=== PATIENT | female | born 1985 | race Caucasian/White ===

== ENCOUNTER 2019-04-02 07:59 | Emergency (ER) | payer OTHER, MEDICAID ==
[~2019-04-02] VITALS: Ht 165.1 cm; Wt 72.6 kg
--- NOTE | 2019-04-02 08:32 | Diagnostic Imaging Report ---
PATIENT HISTORY: Left ankle injury. TECHNIQUE: 3 views of the left ankle COMPARISON: None FINDINGS: There is a mildly displaced avulsion fracture at the tip of the lateral malleolus. Ankle mortise appears symmetric. Joint spaces are preserved. An os trigonum is noted. There is a small plantar calcaneal enthesophyte. There is a small tibiotalar joint effusion. There is moderate lateral soft tissue edema. IMPRESSION: 1. Mildly displaced avulsion fracture at the tip of the left lateral malleolus. 2. Small left tibiotalar joint effusion. Dictated by: Dictated on workstation # [id number]
--- NOTE | 2019-04-02 08:51 | ED Lower Extremity ---
General Chief Complaint: Lower Extremity Stated Complaint: LT FOOT INJ Nursing Triage Note: Patient reports she was watering gamino last night, tripped and fell in the yard and heard her left ankle "pop". Swelling and pain in left ankle have worsened overnight. Patient states she is 30 weeks . Nursing Sepsis Screen: No Definite Risk Source: patient, RN notes reviewed Exam Limitations: no limitations History of Present Illness Date Seen by Provider: Apr 02, 2019 Time Seen by Provider: 08:45 Initial Comments Patient presents c/ c/o worsening left ankle pain and swelling p/ falling last PM. States she did hear a pop in her ankle when it happened. Denies any other injuries. Reports being 30 weeks . Onset: yesterday (last PM) Severity: moderate (03/29) Pain/Injury Location: left ankle Method of Injury: fell (while watering plants) Modifying Factors: Worse With Movement; Improves With Rest Allergies and Home Medications Allergies Coded Allergies: peanut (Verified Allergy, Unknown, 04/02/19) Patient Home Medication List Home Medication List Reviewed: Yes Review of Systems Constitutional: see HPI : Yes Musculoskeletal: see HPI, other (left ankle pain and swelling) All Other Systems Reviewed Negative Unless Noted: Yes (Negative excepted noted.) Past Dnqvkhw-Cmxlgt-Tthakt Hx Patient Social History Alcohol Use: Denies Use Recreational Drug Use: No Smoking Status: Never a Smoker 2nd Hand Smoke Exposure: No Recent Foreign Travel: No Contact w/Someone Who Travel: No Recent Infectious Disease Expo: No Recent Hopitalizations: No Physical Abuse: No Sexual Abuse: No Mistreated: No Fear: No Seasonal Allergies Seasonal Allergies: No Past Medical History Surgeries: Yes (rotator cuff) Orthopedic Respiratory: No Cardiac: No Neurological: No Genitourinary: No Gastrointestinal: No Musculoskeletal: No Endocrine: No HEENT: No Cancer: No Psychosocial: No Integumentary: No Blood Disorders: No Adverse Reaction/Blood Tranf: No Physical Exam Vital Signs Vital Signs - First Documented 04/02/19 08:12 Temp 98.7 Pulse 125 Resp 16 B/P (MAP) 131/45 (73) Pulse Ox 100 O2 Delivery Room Air Capillary Refill : Less Than 3 Seconds Height, Weight, BMI Height: 5'5.00" Weight: 160lbs. oz. 72.901170uc; BMI Method:Stated General Appearance: WD/WN, no apparent distress Cardiovascular: tachycardia Respiratory: no respiratory distress Ankles: left ankle bone tenderness, left ankle limited range of motion, left ankle pain, left ankle swelling Neurologic/Psychiatric: no motor/sensory deficits, alert, normal mood/affect, oriented x 3 Skin: warm/dry Progress/Results/Core Measures Results/Orders My Orders Orders - ADITYA CEVALLOS DO Ankle 3 View Left (04/02/19 08:08) Surendra Bandage (04/02/19 08:51) Vital Signs/I&O 04/02/19 04/02/19 08:12 08:58 Temp 98.7 98.7 Pulse 125 125 Resp 16 16 B/P (MAP) 131/45 (73) 131/45 (73) Pulse Ox 100 100 O2 Delivery Room Air Blood Pressure Mean: 73 Diagnostic Imaging Diagonstic Imaging: Xray Plain Films/CT/US/NM/MRI: ankle (left; avulsion fx distal fibula) Departure Impression Primary Impression: Closed avulsion fracture of distal end of left fibula Disposition: HOME, SELF-CARE Condition: Stable Departure-Patient Inst. Referrals: RHONDA SANCHEZ MD (PCP/Family) Primary Care Physician Patient Instructions: Fibula Fracture (DC) Add. Discharge Instructions: All discharge instructions reviewed with patient and/or family. Voiced understanding. WITH YOU BEING YOU CAN ONLY USE TYLENOL 1000 mg EVERY 6 HOURS FOR PAIN. DO NOT EXCEED 4000 mg OF TYLENOL IN A 24 HOUR PERIOD. CHECK WITH DR. SANCHEZ IN THE AM (04/03) REGARDING POSSIBLE REFERRAL TO [facility] FOR FOLLOW UP EVALUATION AND RECOMMENDATIONS. ADITYA CEVALLOS DO Apr 02, 2019 08:51
[2019-04-02 08:58] VITALS: BP 131/45
== END 2019-04-02 08:59 | disposition home or self-care (01) ==
LOC: ER FS 08:01
DX: O9A.213 Injury, poisoning and certain other consequences of external causes complicating pregnancy, third trimester (principal); S82.832A Other fracture of upper and lower end of left fibula, initial encounter for closed fracture; Z3A.30 30 weeks gestation of pregnancy; W01.0XXA Fall on same level from slipping, tripping and stumbling without subsequent striking against object, initial encounter; Y92.096 Garden or yard of other non-institutional residence as the place of occurrence of the external cause
CPT/HCPCS: 73610

== ENCOUNTER 2019-04-29 15:10 | Outpatient (CLI) | payer OTHER, MEDICAID ==
[~2019-04-29] VITALS: Ht 162.6 cm; Wt 73.6 kg
--- NOTE | 2019-04-29 15:18 | NUR ---
SAYRA SOTELO presented to unit via AMBULATORY from ED, accompanied by MOTHER, with c/o N/V/D,CRAMPING. SAYRA SOTELO weighed, gowned, voided, and to bed. EFHM and TOCO applied, VS taken. SAYRA SOTELO oriented to bed controls, call light, TV, heat, and A/C controls.
[2019-04-29 15:24] VITALS: BP 124/73
[2019-04-29] MEDS ORDERED: ONDA4TAB11 PO (15:30)
[2019-04-29] MEDS ORDERED: PANT40TA2 PO (15:31)
[2019-04-29] MEDS ORDERED: PREN-37 PO (15:31)
[2019-04-29] MEDS ORDERED: FLUT9.9S NS (15:32)
[2019-04-29] MEDS ORDERED: LACTATED RINGERS 1,000 ML IV ONE (15:42)
[2019-04-29] MEDS ORDERED: ONDANSETRON 4 MG/2 ML (SDV) Z0FRAN ONE (15:42)
--- NOTE | 2019-04-29 15:45 | NUR ---
DR. SANCHEZ CALLED AND NOTIFIED OF PT'S ARRIVAL, GESTATION, C/O, REVIEW OF STRIP, VS. NEW ORDERS RECEIVED.
[2019-04-29] MEDS ORDERED: ONDANSETRON 4 MG/2 ML (SDV) Z0FRAN IVP ONE (16:00)
[2019-04-29] MEDS: LACTATED RINGERS 1,000 ML IV SCH ×2 (16:00→17:35)
[2019-04-29 17:13] LABS: BILIRUBIN,URINE NEGATIVE (NEGATIVE); CLARITY,URINE CLEAR; COLOR,URINE YELLOW; GLUCOSE, URINE (UA) NEGATIVE (NEGATIVE); KETONES,URINE 3+ (NEGATIVE); LEUKOCYTE ESTERASE ,URINE 2+ (NEGATIVE); NITRITE,URINE NEGATIVE (NEGATIVE); PH,URINE 6 (5-9); PROTEIN,URINE NEGATIVE (NEGATIVE); UROBILINOGEN,URINE NORMAL (NORMAL)
[2019-04-29 17:20] LABS: BACTERIA,URINE NEGATIVE /HPF; RBC,URINE RARE /HPF
--- NOTE | 2019-04-29 17:28 | NUR ---
DR. SANCHEZ CALLED AND NOTIFIED OF UA RESULTS, PT STATES HX OF GALLSTONES AT 20-23 WK ULTRASOUND. NEW ORDERS RECEIVED. PT TO F/U WITH DR. SANCHEZ THIS WEEK.
--- NOTE | 2019-04-29 17:52 | NUR ---
AROLDO CALLED INTO [facility]- SPOKE WITH MARIA G, PHARMACIST.
[2019-04-29] MEDS ORDERED: NITR-65 PO (18:00)
--- NOTE | 2019-04-29 18:45 | NUR ---
DISCHARGE PAPERS PROVIDED AND REVIEWED WITH PT, PT VERBALIZES UNDERSTANDING AND DENIES ANY QUESTIONS. PAPER SIGNED.
--- NOTE | 2019-04-29 19:00 | NUR ---
PT DISCHARGED FROM [facility] TO [facility]IA AMBULATORY IN STABLE CONDITION.
--- NOTE | 2019-05-01 16:14 | Physician Query-Final Dx ---
SUSY CAPMO 05/01/19 1614: Clinic Account Progress/Dx Physician Query: Please give diagnosis Please be sure to include the weeks of gestation Date of Service Apr 29, 2019 at 15:10 ANGELICA SANCHEZ MD 05/10/191: Clinic Account Progress/Dx DIAGNOSIS: Diagnosis Abdominal pain 33 weeks gestation third trimester SUSY CAMPO May 01, 2019 16:14 ANGELICA SANCHEZ MD May 10, 2019 20:31
== END 2019-04-29 18:45 | disposition home or self-care (01) ==
LOC: WSo 15:10 → LDRP 15:11 → WSo 18:45
PROVIDERS: ATTEND Family Medicine
DX: O26.893 Other specified pregnancy related conditions, third trimester (principal); R10.9 Unspecified abdominal pain; Z3A.33 33 weeks gestation of pregnancy
CPT/HCPCS: 81000; 96361; 96374; 99213

== ENCOUNTER → 2019-05-01 | Outpatient (CLI) | payer OTHER, MEDICAID ==
[~2019-05-01] MED LIST: FLUT9.9S NS; NITR-65 PO; ONDA4TAB11 PO; PANT40TA2 PO; PREN-37 PO
[2019-05-01 09:36] LABS: HEMATOCRIT 37 % (35-52); MEAN CORPUSCULAR HEMOGLOBIN 29 PG (25-34); MEAN CORPUSCULAR HGB CONC 32 G/DL (32-36); MEAN CORPUSCULAR VOLUME 89 FL (80-99); WHITE BLOOD COUNT 9.9 10^3/uL (4.3-11.0)
[2019-05-01 09:37] LABS: BASOPHILS % (AUTO) 0 % (0-10); EOSINOPHILS % (AUTO) 0 % (0-10); LYMPHOCYTES # (AUTO) 1.3 X 10^3 (1.0-4.0); LYMPHOCYTES % (AUTO) 13 % (12-44); MEAN PLATELET VOLUME 12.1 FL (7.4-10.4); MONOCYTES # (AUTO) 0.5 X 10^3 (0.0-1.0); MONOCYTES % (AUTO) 5 % (0-12); NEUTROPHILS % (AUTO) 81 % (42-75); PLATELET COUNT 202 10^3/uL (130-400); RED CELL DISTRIBUTION WIDTH 13.9 % (10.0-14.5)
[2019-05-01 09:57] LABS: ALANINE AMINOTRANSFERASE 23 U/L (0-55); ALBUMIN 3.6 GM/DL (3.2-4.5); ALKALINE PHOSPHATASE 104 U/L (40-136); BILIRUBIN,TOTAL 0.6 MG/DL (0.1-1.0); BUN/CREATININE RATIO 13; CALCIUM 8.8 MG/DL (8.5-10.1); CARBON DIOXIDE 17 MMOL/L (21-32); CHLORIDE 101 MMOL/L (98-107); CREATININE SERUM 0.55 MG/DL (0.60-1.30); GFR ESTIMATED > 60; GLUCOSE 85 MG/DL (70-105); SODIUM 138 MMOL/L (135-145); TOTAL PROTEIN 6.6 GM/DL (6.4-8.2)
== END ==
LOC: LAB 09:22
PROVIDERS: ATTEND Family Medicine
DX: E86.0 Dehydration (principal); R10.11 Right upper quadrant pain
CPT/HCPCS: 36415; 80053; 85025

== ENCOUNTER 2019-05-05 14:16 | Outpatient (CLI) | payer OTHER, MEDICAID ==
[~2019-05-05] VITALS: Ht 162.6 cm; Wt 73.6 kg
[2019-05-05] VITALS (8 sets, daily range): BP systolic 101–112; BP diastolic 56–67
--- NOTE | 2019-05-05 14:05 | NUR ---
Arrived to unit ambulates self and sent from office for IV fluids and medications due to lab results noted in office. pt c/o N/V/D for 1 week. Wt obtained and to room 303. Gowned and to bed. Oriented to room and call light.
[~2019-05-05 14:16] MED LIST changes: -SUCR1TAB36 PO
--- NOTE | 2019-05-05 15:05 | NUR ---
Dr Lopez notified of pt arrival, new orders received. Plan of care reviewed with pt. pt denies needs at this time. denies needing ice chips or water due to hx of n/v.
[2019-05-05] MEDS ORDERED: NS W/KCL 40 MEQ/L 1,000 ML IV ONE (15:15)
[2019-05-05] MEDS ORDERED: CATHETER FLUSH 10 ML SYR IV PRN (15:30)
[2019-05-05] MEDS: MAGNESIUM 1 GM/100 ML IVPB 100 ML IV SCH ×4 (16:15→19:58)
[2019-05-05] MEDS ORDERED: SUCR1TAB36 PO (16:26)
--- NOTE | 2019-05-05 18:00 | NUR ---
pt reports she is hungry and requests diet. Discussed diet and ordering process with pt. and reg diet ordered.
--- NOTE | 2019-05-05 22:10 | NUR ---
Written discharge instructions reviewed with patient. Discharge instructions signed and copy given. Patient ambulated off unit with all personal belongings. Condition stable. No signs or symptoms of distress.
--- NOTE | 2019-05-08 09:36 | Physician Query-Final Dx ---
SUSY CAMPO 05/08/19 0936: Clinic Account Progress/Dx Physician Query: Please give diagnosis Please remember to add gestational weeks Date of Service May 05, 2019 at 14:16 RHONDA SANCHEZ MD 05/12/19 2336: Clinic Account Progress/Dx DIAGNOSIS: Diagnosis: (1) Hypomagnesemia (2) Hypokalemia (3) Nausea vomiting and diarrhea (4) 34 weeks gestation of Diagnosis Hypomag and hypokalemia at 34 weeks gestation due to vomiting and diarrhea SUSY CAMPO May 08, 2019 09:36 RHONDA SANCHEZ MD May 12, 2019 23:36
== END 2019-05-05 22:10 | disposition home or self-care (01) ==
LOC: WSo 14:16 → LDRP 14:22 → WSo 22:10
PROVIDERS: ATTEND Family Medicine
DX: O99.283 Endocrine, nutritional and metabolic diseases complicating pregnancy, third trimester (principal); O21.2 Late vomiting of pregnancy; R19.7 Diarrhea, unspecified; E83.42 Hypomagnesemia; E87.6 Hypokalemia; Z3A.34 34 weeks gestation of pregnancy
CPT/HCPCS: 96361; 96374; 96376; 99213

== ENCOUNTER → 2019-05-05 | Outpatient (CLI) | payer OTHER, MEDICAID ==
[~2019-05-05] MED LIST changes: +SUCR1TAB36 PO
[2019-05-05 12:39] LABS: BUN/CREATININE RATIO 8; CARBON DIOXIDE 19 MMOL/L (21-32); CHLORIDE 103 MMOL/L (98-107); CREATININE SERUM 0.62 MG/DL (0.60-1.30); GFR ESTIMATED > 60; SODIUM 139 MMOL/L (135-145)
[2019-05-05 12:40] LABS: CALCIUM 8.7 MG/DL (8.5-10.1); GLUCOSE 92 MG/DL (70-105); MAGNESIUM 1.2 MG/DL (1.6-2.4)
== END ==
LOC: LAB FS 11:28
PROVIDERS: ATTEND Family Medicine
DX: E87.6 Hypokalemia (principal)
CPT/HCPCS: 36415; 80048; 83735

== ENCOUNTER 2019-06-08 19:00 | Inpatient (IN) | payer OTHER, MEDICAID ==
[~2019-06-08] VITALS: Ht 165 cm; Wt 78.7 kg
[~2019-06-08 19:00] MED LIST changes: +SUCR1TAB36 PO
--- NOTE | 2019-06-08 19:00 | NUR ---
SAYRA SOTELO presented to unit via ambulation from home, accompanied by s.o. for INDUCTION. SAYRA SOTELO weighed, gowned, voided, and to bed. EFHM and TOCO applied, VS taken. SAYRA SOTELO oriented to bed controls, call light, TV, heat, and A/C controls.
[2019-06-08] MEDS ORDERED: D5 LR IV SOLUTION 1,000 ML IV ONE (19:06)
[2019-06-08 19:27] VITALS: BP 123/71
[2019-06-08] MEDS: D5 LR IV SOLUTION 1,000 ML IV SCH (19:30)
[2019-06-08] MEDS ORDERED: LACTATED RINGERS 1,000 ML IV SCH (19:52)
[2019-06-08] MEDS ORDERED: MISOPROSTOL 100 MCG (CYTOTEC) TAB ONE (19:52)
[2019-06-08] MEDS ORDERED: TERBUTALINE INJ 1 MG/ML (BRETHINE) AMP SC PRN (20:00)
[2019-06-08] MEDS ORDERED: CATHETER FLUSH 10 ML SYR IV PRN (20:00)
[2019-06-08] MEDS ORDERED: MINERAL OIL CONCENTRATE 99.9% 15 ML UDC TOP PRN (20:00)
[2019-06-08 20:01] LABS: BASOPHILS % (AUTO) 0 % (0-10); EOSINOPHILS # (AUTO) 0.2 10^3/uL (0.0-0.3); EOSINOPHILS % (AUTO) 1 % (0-10); HEMATOCRIT 37 % (35-52); LYMPHOCYTES # (AUTO) 2.6 X 10^3 (1.0-4.0); LYMPHOCYTES % (AUTO) 21 % (12-44); MEAN CORPUSCULAR HEMOGLOBIN 28 PG (25-34); MEAN CORPUSCULAR HGB CONC 32 G/DL (32-36); MEAN CORPUSCULAR VOLUME 86 FL (80-99); MEAN PLATELET VOLUME 11.5 FL (7.4-10.4); MONOCYTES # (AUTO) 0.7 X 10^3 (0.0-1.0); MONOCYTES % (AUTO) 5 % (0-12); NEUTROPHILS # (AUTO) 9.4 X 10^3 (1.8-7.8); NEUTROPHILS % (AUTO) 73 % (42-75); PLATELET COUNT 232 10^3/uL (130-400); RED CELL DISTRIBUTION WIDTH 14.9 % (10.0-14.5); WHITE BLOOD COUNT 12.9 10^3/uL (4.3-11.0)
[2019-06-08] MEDS: MISOPROSTOL 100 MCG (CYTOTEC) TAB PV SCH ×2 (20:07→23:57)
[2019-06-08 21:30] VITALS: BP 109/53
[2019-06-08 22:30] VITALS: BP 115/68
[2019-06-08 23:30] VITALS: BP 121/61
[2019-06-09] VITALS (64 sets, daily range): BP systolic 101–146; BP diastolic 52–107
[2019-06-09] MEDS: BUTORPHANOL INJ 2 MG/ML (STADOL) VIAL IV PRN ×2 (01:36→03:33)
[2019-06-09] MEDS ORDERED: SUFENTA 0.6MCG/ML BUPIVA 0.125 100 ML ONE (03:39)
[2019-06-09] MEDS: D5 LR IV SOLUTION 1,000 ML IV SCH ×2 (03:45→11:22)
[2019-06-09] MEDS ORDERED: OXYTOCIN/NORMAL SALINE 500 ML IV SCH (04:11)
[2019-06-09] MEDS ORDERED: fentaNYL INJECTION 100 MCG/2 ML AMP ONE (04:12)
[2019-06-09] MEDS ORDERED: LACTATED RINGERS 1,000 ML IV ONE (04:55)
[2019-06-09] MEDS ORDERED: ONDANSETRON 4 MG/2 ML (SDV) Z0FRAN IV PRN (05:00)
[2019-06-09] MEDS ORDERED: NALOXONE 0.4 MG/ML 1 ML (NARCAN) VIAL IV PRN ×2 (05:00)
[2019-06-09] MEDS: EPIDURAL (SUFENTA 0.6MCG/ML BUPIVA 0.125%) 100 ML BAG EPI PRN ×2 (05:00→13:28)
[2019-06-09] MEDS ORDERED: diphenhydrAMINE 50 MG/ML INJ (BENADRYL) IV PRN (05:00)
[2019-06-09] MEDS ORDERED: METOCLOPRAMIDE INJ 10 MG/2 ML (REGLAN) IV PRN (05:00)
[2019-06-09] MEDS: MISOPROSTOL 100 MCG (CYTOTEC) TAB PV SCH (05:47)
[2019-06-09] MEDS ORDERED: PANTOPRAZOLE 40 MG (PROTONIX) VIAL IV ONE (09:00)
--- NOTE | 2019-06-09 10:46 | History & Physical-OB ---
OB - Chief Complaint & HPI Date/Time Date of Admission: Date of Admission: Jun 08, 2019 at 19:00 Date seen by a Provider: Jun 09, 2019 Time Seen by a Provider: 10:43 Chief Complaint/History OB-Reason for Admission/Chief: Induction of Labor Hx : 1 Hx Para: 0 Expected Date of Delivery: Jun 12, 2019 Gestational Age in Weeks: 39 Gestational Age in Days: 4 Indication for induction: maternal discomfort Admission Nurse Assessment Rev: Yes Allergies and Home Medications Allergies Coded Allergies: peanut (Verified Allergy, Unknown, 04/02/19) Home Medications Fluticasone Propionate 9.9 Ml Rodney.susp, 1 SPRAY NS DAILY, (Reported) 1 SPRAY EACH NARE DAILY Ondansetron 4 Mg Tab.rapdis, 4 MG PO DAILY, (Reported) Pantoprazole Sodium 40 Mg Tablet.dr, 40 MG PO DAILY, (Reported) Vit/Iron Fumarate/FA 1 Each Tablet, 1 EACH PO DAILY, (Reported) Patient Home Medication List Home Medication List Reviewed: Yes OB - History Hx of Present Care: Yes Ultrasounds: Normal mid trimester US Obstetrical Complications: None Medical Complications: None Delivery History Adverse Rxn to Tranfusion: No Patient Past Medical History previously healthy Social History/Family History Recent Infectious Disease Expo: No Alcohol Use: Denies Use Recreational Drug Use: No 2nd Hand Smoke Exposure: No Immunizations Hepatitis A: Yes Hepatitis B: Yes OB - Admission Exam Physical Exam Vitals: Vital Signs 06/09/19 06/09/19 06/09/19 07:20 07:50 10:20 Temp 36.5 Pulse 104 Resp 20 B/P (MAP) 115/66 (82) Pulse Ox 98 O2 Delivery Room Air HEENT: NCAT Heart: Rhythm Normal Lungs: Clear Abdomen: Gravid Extremities: Normal Reflexes: Normal Cervical Dilatation: 4cm Effacement: 75% Station: -2 Membranes: Ruptured Amniotic Fluid: Clear Heart Rate: 130's Accelerations: Accelerations Present Decelerations: No Decelerations Short Term Variability: Present Dinking Machine Operator Variability: Average (6-25) Contractions on Admission: < 5 Minutes Apart Labs Laboratory Tests Test 06/08/19 19:30 Range/Units White Blood Count 12.9 H 4.3-11.0 10^3/uL Red Blood Count 4.33 L 4.35-5.85 10^6/uL Hemoglobin 12.0 11.5-16.0 G/DL Hematocrit 37 35-52 % Mean Corpuscular Volume 86 80-99 FL Mean Corpuscular Hemoglobin 28 25-34 PG Mean Corpuscular Hemoglobin Concent 32 32-36 G/DL Red Cell Distribution Width 14.9 H 10.0-14.5 % Platelet Count 232 130-400 10^3/uL Mean Platelet Volume 11.5 H 7.4-10.4 FL Neutrophils (%) (Auto) 73 42-75 % Lymphocytes (%) (Auto) 21 12-44 % Monocytes (%) (Auto) 5 0-12 % Eosinophils (%) (Auto) 1 0-10 % Basophils (%) (Auto) 0 0-10 % Neutrophils # (Auto) 9.4 H 1.8-7.8 X 10^3 Lymphocytes # (Auto) 2.6 1.0-4.0 X 10^3 Monocytes # (Auto) 0.7 0.0-1.0 X 10^3 Eosinophils # (Auto) 0.2 0.0-0.3 10^3/uL Basophils # (Auto) 0.0 0.0-0.1 10^3/uL OB - Assessment/Plan/Diagnosis Assessment Admission Dx Induction of labor at 39 5/7 wga. Admission Status: Inpatient Order (span 2 midnights) Reason for Inpatient Admission: Induction of labor. Plan Plan: Induction Induction Method: per Pitocin Protocol Discharge Diagnosis Diagnosis: Unchanged from 2 hours prior. cytotec overnight. Increase pitocin. AROM earlier. Will monitor. RHONDA SANCHEZ MD Jun 09, 2019 10:46
[2019-06-09] MEDS ORDERED: LIDOCAINE/EPI 2% 1:200,00 (XYLOCAINE) 10 ML VIAL ONE (17:09)
[2019-06-09] MEDS ORDERED: MEASLES,MUMPS,RUBELLA 1 EA INJ SQ ONE (18:15)
[2019-06-09] MEDS ORDERED: BENZOCAINE/MENTHOL (DERMOPLAST) 56 ML CAN TP PRN (18:15)
[2019-06-09] MEDS ORDERED: WITCH HAZEL(TUCKS) 40 EA JAR TOP PRN (18:15)
--- NOTE | 2019-06-09 18:15 | OB Labor & Delivery Record ---
Vag Delivery Note Vag Delivery Note Date of Delivery: 06/09/19 Preoperative Diagnosis: Hilda Interiano is a (33 /Para 1 / 0, Gestational Age (wks)39with [5 days] Postoperative Diagnosis: Same Surgeon: RHONDA SANCHEZ [employer] Estimator: [none] Anesthesia: [epidural] Delivery Type: [] Findings: [] Viable [male] infant, apgars [8/9], weight [8 pounds 3 ounces] Lacerations: Intact placenta with 3 vessel cord. Loose nuchal cord times one. Estimated Blood Loss: [200] ml Complications: None Condition: Stable Description of Procedure: The patient is a 33 year old female who presented [for induction]. She was admitted and informed consent was obtained. Her labor course was remarkable for [nothing] She progressed to complete dilatation and began to push. She was then set up for delivery. The infant's head was delivered atraumatically in the [OA] position. The shoulders and remainder of the infant's body were then delivered without difficulty. Upon delivery, the head was held below the level of the perineum and the mouth and nares were bulb suctioned. The cord was doubly clamped and cut by father after 60 seconds. An intact placenta with 3- vessel cord delivered via Gia and there was found to be minimal bleeding.~ Vigorous fundal massage was performed and the fundus was found to be firm. IV oxytocin was given. Examination of the vagina and perineum revealed a [2nd degree perineal] laceration repaired in the usual fashion with 3-0 vicryl suture. Following the repair, sponge, instrument and needle counts were correct. Mom and baby were both in stable condition in the labor suite. Vitals - Labs Vital Signs - I&O Vital Signs Date Time Temp Pulse Resp B/P (MAP) Pulse Ox O2 Delivery O2 Flow Rate FiO2 06/09/19 16:05 84 118/70 (86) Room Air 06/09/19 15:50 79 122/68 (86) Room Air 06/09/19 15:35 37.0 69 125/70 (88) Room Air 06/09/19 15:20 87 124/73 (90) Room Air 06/09/19 15:05 74 122/60 (80) Room Air 06/09/19 14:20 37.0 76 18 105/52 (69) Room Air 06/09/19 14:05 97 126/69 (88) Room Air 06/09/19 13:50 86 119/60 (79) Room Air 06/09/19 13:35 84 112/66 (81) Room Air 06/09/19 13:20 36.9 81 20 110/67 (81) Room Air 06/09/19 13:05 80 111/63 (79) Room Air 06/09/19 12:50 76 106/57 (73) Room Air 06/09/19 12:35 90 121/64 (83) Room Air 06/09/19 12:20 37.4 104 18 111/91 (98) Room Air 06/09/19 12:05 77 110/58 (75) Room Air 06/09/19 11:50 76 109/65 (80) Room Air 06/09/19 11:35 89 108/70 (83) Room Air 06/09/19 11:20 85 110/60 (77) Room Air 06/09/19 11:05 71 104/53 (70) Room Air 06/09/19 10:50 83 106/54 (71) Room Air 06/09/19 10:35 37.1 83 18 131/80 (97) Room Air 06/09/19 10:20 104 115/66 (82) Room Air 06/09/19 10:05 89 121/72 (88) Room Air 06/09/19 09:50 86 114/60 (78) Room Air 06/09/19 09:35 91 123/69 (87) Room Air 06/09/19 09:20 94 138/68 (91) Room Air 06/09/19 09:05 88 133/74 (93) Room Air 06/09/19 08:50 86 120/74 (89) Room Air 06/09/19 08:35 73 107/61 (76) Room Air 06/09/19 08:20 114/75 (88) Room Air 06/09/19 08:05 71 128/72 (90) Room Air 06/09/19 07:50 68 112/66 (81) 98 Room Air 06/09/19 07:35 66 108/65 (79) 98 Room Air 06/09/19 07:20 36.5 74 20 115/69 (84) 98 Room Air 06/09/19 07:05 77 116/70 (85) 99 Room Air 06/09/19 07:00 64 113/55 (74) 98 Room Air 06/09/19 06:45 70 110/63 (79) 95 Room Air 06/09/19 06:30 70 101/63 (76) 97 Room Air 06/09/19 06:15 65 104/61 (75) 98 Room Air 06/09/19 06:00 79 110/59 (76) 95 Room Air 06/09/19 05:45 80 112/62 (79) 96 Room Air 06/09/19 05:30 70 96 Room Air 06/09/19 05:15 95 118/66 (83) 97 Room Air 06/09/19 05:10 73 118/65 (82) 97 06/09/19 05:05 82 117/68 (84) 100 06/09/19 05:00 96 115/58 (77) 98 Room Air 06/09/19 04:55 76 113/64 (80) 99 06/09/19 04:50 106 106/59 (75) 100 06/09/19 04:45 103 119/68 (85) 100 Room Air 06/09/19 04:40 96 136/82 (100) 100 06/09/19 04:35 69 114/57 (76) 100 06/09/19 04:31 99 122/56 (78) 100 06/09/19 04:30 35.8 93 117/59 (78) 100 Room Air 06/09/19 04:00 86 100 Room Air 06/09/19 02:30 104 115/68 (84) 06/09/19 01:30 78 121/79 (93) 06/09/19 01:00 36.6 06/09/19 00:30 79 111/63 (79) 06/08/19 23:30 96 121/61 (81) 06/08/19 22:30 91 115/68 (84) 06/08/19 21:30 88 109/53 (71) 06/08/19 19:27 37.0 112 18 123/71 (88) I & O 06/09/19 07:00 Intake Total 2000 ml Balance 2000 ml Labs Laboratory Tests 06/08/19 19:30: White Blood Count 12.9H, Red Blood Count 4.33L, Hemoglobin 12.0, Hematocrit 37, Mean Corpuscular Volume 86, Mean Corpuscular Hemoglobin 28, Mean Corpuscular Hemoglobin Concent 32, Red Cell Distribution Width 14.9H, Platelet Count 232, Mean Platelet Volume 11.5H, Neutrophils (%) (Auto) 73, Lymphocytes (%) (Auto) 21, Monocytes (%) (Auto) 5, Eosinophils (%) (Auto) 1, Basophils (%) (Auto) 0, Neutrophils # (Auto) 9.4H, Lymphocytes # (Auto) 2.6, Monocytes # (Auto) 0.7, Eosinophils # (Auto) 0.2, Basophils # (Auto) 0.0 RHONDA SANCHEZ MD Jun 09, 2019 18:15
[2019-06-09] MEDS: OXYTOCIN/NORMAL SALINE 500 ML IV SCH ×2 (18:18→19:49)
--- NOTE | 2019-06-09 19:25 | NUR ---
REPORT RECEIVED AND CARES RESUMED BY THIS NURSE.
--- NOTE | 2019-06-09 20:00 | NUR ---
DESPITE INSTRUCTIONS TO NOT GET OUT OF BED WITHOUT NURSE STANDBY, PT FOUND STANDING AT SIDE OF BED WITH BLOOD ON FLOOR AND EPIDURAL TUBING TANGLED. PT ASSISTED TO BATHROOM. EPIDURAL CATH D/C'D. PT CLEANED UP AND PERICARE DONE. TUCKS AND DERMAPLAST SPRAY USED. INSTRUCTED PT THAT HER ROOM WAS READY AND WE WOULD TRANSFER AT THIS TIME. PT DESIRES TO STAY IN LABOR ROOM TO EAT AND THEN MOVE.
[2019-06-09] MEDS: DOCUSATE SODIUM 100 MG (COLACE) CAP PO SCH (20:25)
--- NOTE | 2019-06-09 20:25 | NUR ---
PT AMB TO ROOM 310 IN STABLE CONDITION. AT SIDE WITH BELONGINGS.
--- NOTE | 2019-06-09 21:50 | NUR ---
PT SITTING UP IN BED WITH AT SIDE. PT AND WITH MANY QUESTIONS CONCERNING SELF-CARE, CARES AND ROUTINES. QUESTIONS ANSWERED.
[2019-06-09] MEDS ORDERED: CATHETER FLUSH 10 ML SYR IV SCH (22:00)
--- NOTE | 2019-06-09 22:00 | NUR ---
MAINTENANCE TO ROOM TO UNCLOG BATHROOM SINK.
--- NOTE | 2019-06-09 22:30 | NUR ---
PT INTO SHOWER. ASSIST.
[2019-06-10] MEDS: IBUPROFEN 600 MG (MOTRIN) TAB PO SCH ×5 (00:05→23:47)
--- NOTE | 2019-06-10 00:05 | NUR ---
PT REPORTS SHE IS HAVING VERY HEAVY BLEEDING. REPORTS LAST CHANGED PAD 1 HOUR AGO. PT TO BATHROOM WITH THIS NURSE AT SIDE. NOTED SCANT BLEEDING ON PAD APPROXIMATELY 3X1 INCH AREA OF RUBRA LOCHIA NOT SOAKED ENTIRELY THROUGH PAD. REASSURANCE GIVEN THAT THIS IS AN APPROPRIATE AMOUNT OF BLEEDING AND TO CALL FOR NURSE IF PASSING CLOTS, LOCHIA INCREASES OR IF SHE IS CONCERNED.
[2019-06-10 01:00] VITALS: BP 131/71
--- NOTE | 2019-06-10 02:00 | NUR ---
PT IS GOING TO TRY TO REST WHILE INFANT IS RESTING. DENIES ANY NEEDS OR C/O'S.
--- NOTE | 2019-06-10 04:00 | NUR ---
PT HAS JUST GOTTEN UP TO VOID. REPORTS LOCHIA REMAINS APPROPRIATE. PT IS PREPARING TO BREASTFEED.
[2019-06-10 05:25] LABS: BASOPHILS % (AUTO) 0 % (0-10); EOSINOPHILS # (AUTO) 0.1 10^3/uL (0.0-0.3); EOSINOPHILS % (AUTO) 1 % (0-10); HEMATOCRIT 33 % (35-52); HEMOGLOBIN 10.9 G/DL (11.5-16.0); LYMPHOCYTES # (AUTO) 3.3 X 10^3 (1.0-4.0); LYMPHOCYTES % (AUTO) 14 % (12-44); MEAN CORPUSCULAR HEMOGLOBIN 29 PG (25-34); MEAN CORPUSCULAR HGB CONC 33 G/DL (32-36); MEAN CORPUSCULAR VOLUME 87 FL (80-99); MEAN PLATELET VOLUME 11.7 FL (7.4-10.4); MONOCYTES # (AUTO) 1.1 X 10^3 (0.0-1.0); MONOCYTES % (AUTO) 5 % (0-12); NEUTROPHILS # (AUTO) 19.5 X 10^3 (1.8-7.8); NEUTROPHILS % (AUTO) 81 % (42-75); PLATELET COUNT 216 10^3/uL (130-400); RED CELL DISTRIBUTION WIDTH 14.7 % (10.0-14.5)
[2019-06-10] MEDS: PRENATAL VITAMIN 1 EA TAB PO SCH (08:53)
[2019-06-10] MEDS: PANTOPRAZOLE 40 MG (PROTONIX) TAB PO SCH (08:53)
[2019-06-10] MEDS: DOCUSATE SODIUM 100 MG (COLACE) CAP PO SCH ×2 (08:53→20:27)
[2019-06-10] MEDS: ACETAMINOPHEN 500 MG TAB (TYLENOL) PO SCH ×2 (08:54→17:41)
[2019-06-10 08:57] VITALS: BP 108/71
[2019-06-10] MEDS ORDERED: ONDANSETRON 4 MG (ZOFRAN) ORAL DISSOLVE TAB PO SCH (09:00)
[2019-06-10] MEDS ORDERED: FLUTICASONE NASAL SPRAY (FLONASE) 16 GM BTL NS SCH (09:00)
--- NOTE | 2019-06-10 09:41 | Anesthesia-Regional Post-Op ---
Regional Patient Condition Mental Status: Alert, Oriented x3 Circulation: Same as Pre-Op Headache: Absent Sensation: Full Recovery Motor Block: Absent Post Op Complications Complications None Follow Up Care/Instructions Patient Instructions None needed. Anesthesia/Patient Condition Patient is doing well, no complaints, stable vital signs, no apparent adverse anesthesia problems. No complications reported per nursing. ROBERT RASCON CRNA Jun 10, 2019 09:41
--- NOTE | 2019-06-10 10:30 | NUR ---
Dr Espinoza to see patient and review plan of care.
--- NOTE | 2019-06-10 10:35 | NUR ---
Electric breastpump to mothers room and mother instructed on how to pump and frequency.
--- NOTE | 2019-06-10 10:45 | Progress Note ---
FERNANDO TUTTLE,MED STUDENT 06/10/19 1045: Subjective Subjective/Events-last exam 33 yo G1 now P1 day 1 after at 1750 with IOL at 39w5d. No history of complications during . GBS neg. A-. second degree laceration repair. Denies shortness of breath, chest pain, dizziness, fever at this time. Review of Systems General: No Chills HEENT: No Head Aches, No Visual Changes Pulmonary: No Dyspnea Cardiovascular: No: Chest Pain, Palpitations, Lt Headedness Gastrointestinal: No: Nausea, Vomiting, Abdominal Pain Genitourinary: No Dysuria Objective Exam Last Set of Vital Signs Vital Signs Date Time Temp Pulse Resp B/P (MAP) Pulse Ox O2 Delivery O2 Flow Rate FiO2 06/10/19 08:57 36.4 106 16 108/71 (83) 97 Room Air Capillary Refill : I&O Intake and Output 06/10/19 00:00 Intake Total 2900 ml Output Total 700 ml Balance 2200 ml Intake IV Total 2900 ml Output Urine Total 700 ml General: Alert, Oriented X3, Cooperative, No Acute Distress HEENT: Atraumatic Lungs: Clear to Auscultation Heart: Regular Rate Abdomen: Normal Bowel Sounds, Soft, Other (appropraite fundal tenderness below umbilicus ) Extremities: Other (1+ pedel edema ) Neuro: Normal Gait Psych/Mental Status: Mental Status NL, Mood NL Results/Procedures Lab Laboratory Tests 06/10/19 05:03: White Blood Count 24.0H, Red Blood Count 3.82L, Hemoglobin 10.9L, Hematocrit 33L , Mean Corpuscular Volume 87, Mean Corpuscular Hemoglobin 29, Mean Corpuscular Hemoglobin Concent 33, Red Cell Distribution Width 14.7H, Platelet Count 216, Mean Platelet Volume 11.7H, Neutrophils (%) (Auto) 81H, Lymphocytes (%) (Auto) 14, Monocytes (%) (Auto) 5, Eosinophils (%) (Auto) 1, Basophils (%) (Auto) 0, Neutrophils # (Auto) 19.5H, Lymphocytes # (Auto) 3.3, Monocytes # (Auto) 1.1H, Eosinophils # (Auto) 0.1, Basophils # (Auto) 0.0 Assessment/Plan Assessment/Plan Admission Dx Spontaneous Vaginal Delivery Assessment & Plan Continue routine care. Increase in WBC, no fever or increased abdominal tenderness. Continue to closely monitor Clinical Quality Measures DVT/VTE Risk/Contraindication: Risk Factor Score Per Nursin RFS Level Per Nursing on Admit: 1=Low/No VTE PPX ARELY ESPINOZA MD 06/11/19 1019: Supervisory-Addendum Brief Verification & Attestation Participated in pt care: history, MDM, physical Personally performed: exam, history, MDM, supervision of care Care discussed with: Medical Student Procedures: n/a Verification and Attestation of Medical Student E/M Service A medical student performed and documented this service in my presence. I reviewed and verified all information documented by the medical student and made modifications to such information, when appropriate. I personally performed the physical exam and medical decision making. Arely Espinoza, Jun 11, 2019,10:19 FERNANDO TUTTLE,MED STUDENT Jun 10, 2019 10:45 ARELY ESPINOZA MD Jun 11, 2019 10:19
[2019-06-10 12:17] VITALS: BP 100/60
[2019-06-10 17:07] VITALS: BP 117/68
[2019-06-10 20:28] VITALS: BP 106/51
--- NOTE | 2019-06-10 20:32 | NUR ---
pt sitting up in bed. s/o at bedside. assessment completed. pt denies any needs at this time. will continue to monitor
[2019-06-11 01:12] VITALS: BP 134/60
[2019-06-11] MEDS: ACETAMINOPHEN 500 MG TAB (TYLENOL) PO SCH ×2 (01:29→09:05)
[2019-06-11] MEDS: IBUPROFEN 600 MG (MOTRIN) TAB PO SCH ×3 (05:17→19:00)
[2019-06-11 08:20] VITALS: BP 104/51
[2019-06-11] MEDS: PRENATAL VITAMIN 1 EA TAB PO SCH (09:05)
[2019-06-11] MEDS: FERROUS SULF 325 MG (IRON) TAB PO SCH (09:05)
[2019-06-11] MEDS: PANTOPRAZOLE 40 MG (PROTONIX) TAB PO SCH (09:05)
[2019-06-11] MEDS: DOCUSATE SODIUM 100 MG (COLACE) CAP PO SCH (09:05)
[2019-06-11 10:50] LABS: BASOPHILS % (AUTO) 0 % (0-10); EOSINOPHILS # (AUTO) 0.2 10^3/uL (0.0-0.3); EOSINOPHILS % (AUTO) 1 % (0-10); HEMATOCRIT 30 % (35-52); HEMOGLOBIN 9.7 G/DL (11.5-16.0); LYMPHOCYTES # (AUTO) 2.5 X 10^3 (1.0-4.0); LYMPHOCYTES % (AUTO) 13 % (12-44); MEAN CORPUSCULAR HEMOGLOBIN 28 PG (25-34); MEAN CORPUSCULAR HGB CONC 32 G/DL (32-36); MEAN CORPUSCULAR VOLUME 88 FL (80-99); MEAN PLATELET VOLUME 10.6 FL (7.4-10.4); MONOCYTES # (AUTO) 0.7 X 10^3 (0.0-1.0); MONOCYTES % (AUTO) 3 % (0-12); NEUTROPHILS # (AUTO) 15.9 X 10^3 (1.8-7.8); NEUTROPHILS % (AUTO) 82 % (42-75); PLATELET COUNT 251 10^3/uL (130-400); RED CELL DISTRIBUTION WIDTH 15.1 % (10.0-14.5); WHITE BLOOD COUNT 19.3 10^3/uL (4.3-11.0)
--- NOTE | 2019-06-11 11:59 | Progress Note ---
FERNANDO TUTTLE,MED STUDENT 06/11/19 1159: Subjective Subjective/Events-last exam 33 year old G1 now P1 day 2 after at 1750 06/09 with IOL at 39w5d. GBS neg, A- blood type. No history of complications during . Second degree laceration repair after delivery. She denies shortness of breath, chest pain, dizziness, chills, headaches, abdominal pain at this time. Review of Systems General: No Chills HEENT: No Head Aches, No Visual Changes Pulmonary: No Dyspnea Cardiovascular: Edema; No: Chest Pain, Lt Headedness Gastrointestinal: No: Abdominal Pain Genitourinary: No Hematuria Musculoskeletal: No: back pain Objective Exam Last Set of Vital Signs Vital Signs Date Time Temp Pulse Resp B/P (MAP) Pulse Ox O2 Delivery O2 Flow Rate FiO2 06/11/19 08:20 36.7 96 20 104/51 (68) Room Air 06/10/19 20:28 95 Capillary Refill : General: Alert, Oriented X3, Cooperative, No Acute Distress HEENT: Atraumatic Neck: Supple Lungs: Clear to Auscultation, Normal Air Movement Heart: No Murmurs, Other (mild tachycardia ) Abdomen: Normal Bowel Sounds, Other (appropriate fundal tenderness below umbilicus ) Extremities: Other (1+ pedal edema ) Neuro: Normal Gait, Normal Speech Psych/Mental Status: Mental Status NL, Mood NL Results/Procedures Lab Laboratory Tests 06/11/19 10:40: White Blood Count 19.3H, Red Blood Count 3.46L, Hemoglobin 9.7L, Hematocrit 30L, Mean Corpuscular Volume 88, Mean Corpuscular Hemoglobin 28, Mean Corpuscular Hemoglobin Concent 32, Red Cell Distribution Width 15.1H, Platelet Count 251, Mean Platelet Volume 10.6H, Neutrophils (%) (Auto) 82H, Lymphocytes (%) (Auto) 13, Monocytes (%) (Auto) 3, Eosinophils (%) (Auto) 1, Basophils (%) (Auto) 0, Neutrophils # (Auto) 15.9H, Lymphocytes # (Auto) 2.5, Monocytes # (Auto) 0.7, Eosinophils # (Auto) 0.2, Basophils # (Auto) 0.0 Assessment/Plan Assessment/Plan Admission Dx Spontaneous Vaginal Delivery Assessment & Plan Continue routine care. Increase in WBC 06/10. Slight overnight fever with continued mild tachycardia, no abdominal pain. Will repeat CBC and monitor Clinical Quality Measures DVT/VTE Risk/Contraindication: Risk Factor Score Per Nursin RFS Level Per Nursing on Admit: 1=Low/No VTE PPX ARELY ESPINOZA MD 06/13/19 1046: Supervisory-Addendum Brief Verification & Attestation Participated in pt care: history, MDM, physical Personally performed: exam, history, MDM, supervision of care Care discussed with: Medical Student Procedures: n/a Verification and Attestation of Medical Student E/M Service A medical student performed and documented this service in my presence. I reviewed and verified all information documented by the medical student and made modifications to such information, when appropriate. I personally performed the physical exam and medical decision making. Arely Espinoza, Jun 13, 2019,10:46 FERNANDO TUTTLE,MED STUDENT Jun 11, 2019 11:59 ARELY ESPINOZA MD Jun 13, 2019 10:46
[2019-06-11 15:00] VITALS: BP 112/58
[2019-06-11 19:30] VITALS: BP 135/78
[2019-06-12 02:18] VITALS: BP 103/66
[2019-06-12] MEDS: IBUPROFEN 600 MG (MOTRIN) TAB PO SCH ×2 (02:18→08:09)
[2019-06-12] MEDS: FERROUS SULF 325 MG (IRON) TAB PO SCH (08:08)
[2019-06-12] MEDS: DOCUSATE SODIUM 100 MG (COLACE) CAP PO SCH (08:09)
[2019-06-12] MEDS: PRENATAL VITAMIN 1 EA TAB PO SCH (08:09)
[2019-06-12 08:15] VITALS: BP 118/72
[2019-06-12] MEDS: PANTOPRAZOLE 40 MG (PROTONIX) TAB PO SCH (08:15)
--- NOTE | 2019-06-12 08:15 | NUR ---
Initial shift assessment completed, see interventions for further. POC reviewed, states understanding.
[2019-06-12] MEDS ORDERED: IBUP-844 PO (09:12)
--- NOTE | 2019-06-12 09:15 | Short Stay Summary ---
Discharge Summary Hospital Course Final Diagnosis: G1 at 39wk3d - IOL s/p ; 2nd degree laceration Hospital Course Routine course. Laboratory Tests 06/11/19 10:40: White Blood Count 19.3H, Red Blood Count 3.46L, Hemoglobin 9.7L, Hematocrit 30L, Mean Corpuscular Volume 88, Mean Corpuscular Hemoglobin 28, Mean Corpuscular Hemoglobin Concent 32, Red Cell Distribution Width 15.1H, Platelet Count 251, Mean Platelet Volume 10.6H, Neutrophils (%) (Auto) 82H, Lymphocytes (%) (Auto) 13, Monocytes (%) (Auto) 3, Eosinophils (%) (Auto) 1, Basophils (%) (Auto) 0, Neutrophils # (Auto) 15.9H, Lymphocytes # (Auto) 2.5, Monocytes # (Auto) 0.7, Eosinophils # (Auto) 0.2, Basophils # (Auto) 0.0 Home Meds Active Ibu (Ibuprofen) 600 Mg Tablet 600 Mg PO Q6HR PRN Reported Flonase Allergy Relief (Fluticasone Propionate) 9.9 Ml [place].susp 1 [place] NS DAILY 1 SPRAY EACH NARE DAILY Tablet ( Vit/Iron Fumarate/FA) 1 Each Tablet 1 Each PO DAILY Protonix (Pantoprazole Sodium) 40 Mg Tablet.dr 40 Mg PO DAILY Ondansetron Odt (Ondansetron) 4 Mg Tab.rapdis 4 Mg PO DAILY Assessment/Pt Instructions G1 at 39wk3d - IOL Discharge Physical Examination General Appearance: Alert, Oriented X3, Cooperative Psych/Mental Status: Mood NL Allergies: Coded Allergies: peanut (Verified Allergy, Unknown, 04/02/19) Discharge Summary Date of Admission Jun 08, 2019 at 19:00 Date of Discharge Jun 12, 2019 Clinical Quality Measures DVT/VTE Risk/Contraindication: Risk Factor Score Per Nursin RFS Level Per Nursing on Admit: 1=Low/No VTE PPX FREDO VALERIO DO Jun 12, 2019 09:15
--- NOTE | 2019-06-12 09:17 | Discharge Inst-Women's Service ---
Discharge Inst-Women's Serv Depart Medication/Instructions New, Converted or Re-Newed RX: Transmitted to Pharmacy ([facility]) Activity Activity: Activity as Tolerated Driving Instructions: You May Drive Nothing Inside Vagina: No Douching, No [place], No Tampons Diet Discharge Diet: No Restrictions Symptoms to Report to : Bleeding Excessive, Fever Over 101 Degrees F, Vaginal Bleeding Increase, Vaginal Discharge Foul, Questions/Concerns, Shortness of Breath For Any Problems or Questions: Contact Your Physician FREDO VALERIO DO Jun 12, 2019 09:17
--- NOTE | 2019-06-12 10:23 | NUR ---
dismissal instructions given, verbalizes understanding. reviewed follow up appointment and Rx's. signature page signed, placed on chart.
--- NOTE | 2019-06-12 10:45 | NUR ---
Pt ambulated to private vehicle with this RN, and s/o @ side. secured in rear facing car seat. pt stable with no sx's of distress noted.
== END 2019-06-12 10:45 | disposition home or self-care (01) | DRG 806 ==
LOC: LDRP 19:00
PROVIDERS: ADMIT Family Medicine; ATTEND Family Medicine
PROC: 10E0XZZ Delivery of Products of Conception, External Approach (ICD-10-PCS; principal; 2019-06-09)
PROC: 0KQM0ZZ Repair Perineum Muscle, Open Approach (ICD-10-PCS; 2019-06-09)
DX: O70.1 Second degree perineal laceration during delivery (principal); O69.81X0 Labor and delivery complicated by cord around neck, without compression, not applicable or unspecified; O99.43 Diseases of the circulatory system complicating the puerperium; R00.0 Tachycardia, unspecified; Z37.0 Single live birth; Z3A.39 39 weeks gestation of pregnancy
CPT/HCPCS: 36415; 83033; 85025; 86762; 86850; 86900; 86901

== ENCOUNTER → 2019-06-19 | Outpatient (CLI) | payer OTHER, MEDICAID ==
[~2019-06-19] MED LIST changes: +IBUP-844 PO
--- NOTE | 2019-06-19 09:50 | Diagnostic Imaging Report ---
EXAMINATION: Left wrist INDICATION: Left wrist pain 3 views were obtained. There are no prior studies available for comparison. There is no fracture, dislocation or acute bony abnormality evident. The radiocarpal joint is well maintained but there is rather pronounced ulnar minus variance. The soft tissues are unremarkable. IMPRESSION: 1. There is no evidence for an acute bony abnormality. 2. There is rather pronounced ulnar minus variance. If clinical concern regarding an underlying abnormality persists, then MRI would be recommended for further evaluation. Dictated by: Dictated on workstation # [id number]
== END ==
LOC: RAD FS 09:15
PROVIDERS: ATTEND Nurse Practitioner
DX: M25.532 Pain in left wrist (principal); M79.645 Pain in left finger(s)
CPT/HCPCS: 73110

== ENCOUNTER → 2019-07-18 | Outpatient (CLI) | payer OTHER, MEDICAID ==
--- NOTE | 2019-07-18 10:47 | Diagnostic Imaging Report ---
INDICATION: Right thumb pain COMPARISON: None available TECHNIQUE: 3 radiographs centered upon the right thumb and a single radiograph of the right hand are obtained dated 07/18/2019 FINDINGS: Tiny well-corticated ossific density is identified associated with the tip of the ulnar styloid. A 4 mm oblong sclerotic focus is noted within the base of the 1st digit proximal phalanx which is parallel to the orientation of the phalanx itself. No associated periosteal reaction. No acute fracture or dislocation. No destructive osseous process. Joint spaces are well-maintained. No suspicious radiopaque foreign body. IMPRESSION: No acute osseous abnormality. Tiny chronic avulsion fracture from the tip of the ulnar styloid. Sclerotic focus within the 1st digit proximal phalanx is favored to relate to a bone island. Dictated by: Dictated on workstation # [id number]
== END ==
LOC: RAD FS 09:18
PROVIDERS: ATTEND Nurse Practitioner
DX: M79.645 Pain in left finger(s) (principal)
CPT/HCPCS: 73140

== ENCOUNTER → 2020-02-07 | Outpatient (CLI) | payer OTHER | LOC: LAB FS 07:37 | PROVIDERS: ATTEND Family Medicine | DX: Z20.828 Contact with and (suspected) exposure to other viral communicable diseases (principal) | CPT/HCPCS: 36415; 86769 ==

== ENCOUNTER → 2020-07-15 | Outpatient (CLI) | payer OTHER | LOC: LAB FS 07:27 | PROVIDERS: ATTEND Family Medicine | DX: Z34.82 Encounter for supervision of other normal pregnancy, second trimester (principal) | CPT/HCPCS: 36415; 82105; 84702; 86336 ==

== ENCOUNTER → 2020-08-20 | Outpatient (CLI) | payer OTHER ==
[2020-08-20 10:53] LABS: BASOPHILS % (AUTO) 0 % (0-10); EOSINOPHILS # (AUTO) 0.6 10^3/uL (0.0-0.3); EOSINOPHILS % (AUTO) 4 % (0-10); HEMATOCRIT 39 % (35-52); HEMOGLOBIN 12.6 G/DL (11.5-16.0); LYMPHOCYTES # (AUTO) 2.7 X 10^3 (1.0-4.0); LYMPHOCYTES % (AUTO) 19 % (12-44); MEAN CORPUSCULAR HEMOGLOBIN 28 PG (25-34); MEAN CORPUSCULAR HGB CONC 32 G/DL (32-36); MEAN CORPUSCULAR VOLUME 86 FL (80-99); MEAN PLATELET VOLUME 10.6 FL (7.4-10.4); MONOCYTES # (AUTO) 0.6 X 10^3 (0.0-1.0); MONOCYTES % (AUTO) 4 % (0-12); NEUTROPHILS # (AUTO) 10.6 X 10^3 (1.8-7.8); NEUTROPHILS % (AUTO) 73 % (42-75); PLATELET COUNT 312 10^3/uL (130-400); WHITE BLOOD COUNT 14.6 10^3/uL (4.3-11.0)
[2020-08-20 11:08] LABS: CHLORIDE 105 MMOL/L (98-107); POTASSIUM 3.9 MMOL/L (3.6-5.0); SODIUM 137 MMOL/L (135-145)
[2020-08-20 11:09] LABS: ALANINE AMINOTRANSFERASE 13 U/L (0-55); ALBUMIN 3.8 GM/DL (3.2-4.5); ALKALINE PHOSPHATASE 78 U/L (40-136); BILIRUBIN,TOTAL 0.2 MG/DL (0.1-1.0); BUN/CREATININE RATIO 16; CALCIUM 9.1 MG/DL (8.5-10.1); CARBON DIOXIDE 19 MMOL/L (21-32); GFR ESTIMATED > 60; GLUCOSE 83 MG/DL (70-105); TOTAL PROTEIN 7.5 GM/DL (6.4-8.2)
[2020-08-20 11:35] LABS: BAND NEUTROPHILS 13 %; BASOPHILS % (MANUAL) 0 %; EOSINOPHILS % (MANUAL) 3 %; LYMPHOCYTES % (MANUAL) 19 %; MONOCYTES % (MANUAL) 3 %; NEUTROPHILS % (MANUAL) 62 %
[2020-08-20 11:36] LABS: RBC MORPH NORMAL
--- NOTE | 2020-08-20 12:13 | Diagnostic Imaging Report ---
CLINICAL INDICATION: Patient with cough, wheezing. EXAM: Chest x-ray PA and lateral views. Patient's abdomen is double shielded due to being . COMPARISONS: None. FINDINGS: Lungs/pleura: There is subtle patchy airspace opacities involving both lung bases which may represent subtle lung infiltrates. There is no pneumothorax. There is no pleural effusion. Mediastinum: Unremarkable. Pulmonary vasculature: Unremarkable. Heart: Unremarkable. Bones/extrathoracic soft tissue: Unremarkable. IMPRESSION: There are subtle patchy airspace opacities involving both lung bases which may represent lung infiltrate/pneumonia. Dictated by: Dictated on workstation # [id number]
== END ==
LOC: LAB FS 10:28
PROVIDERS: ATTEND Family Medicine
DX: R06.2 Wheezing (principal); R05 Cough; R91.8 Other nonspecific abnormal finding of lung field
CPT/HCPCS: 36415; 71046; 80053; 85007; 85027

== ENCOUNTER → 2020-10-05 | Outpatient (CLI) | payer OTHER | LOC: LAB FS 07:30 | PROVIDERS: ATTEND Family Medicine | DX: Z01.83 Encounter for blood typing (principal) | CPT/HCPCS: 36415; 82951; 82952; 82962; 86850 ==

== ENCOUNTER 2020-12-16 12:18 | Outpatient (CLI) | payer OTHER ==
[~2020-12-16] VITALS: Ht 162.6 cm; Wt 83.1 kg
[2020-12-16] MEDS ORDERED: LORA10CA PO (12:46)
[2020-12-16] MEDS ORDERED: MONT10TA21 PO (12:46)
[2020-12-16] MEDS ORDERED: PANT40SU PO (12:46)
[2020-12-16 12:47] LABS: BILIRUBIN,URINE NEGATIVE (NEGATIVE); CLARITY,URINE CLEAR; COLOR,URINE YELLOW; GLUCOSE, URINE (UA) NEGATIVE (NEGATIVE); KETONES,URINE NEGATIVE (NEGATIVE); LEUKOCYTE ESTERASE ,URINE 1+ (NEGATIVE); NITRITE,URINE NEGATIVE (NEGATIVE); PROTEIN,URINE NEGATIVE (NEGATIVE)
[2020-12-16 12:48] VITALS: BP 113/69
[2020-12-16 12:49] VITALS: BP 113/69
[2020-12-16 13:30] VITALS: BP 112/66
[2020-12-16 13:40] LABS: BASOPHILS % (AUTO) 0 % (0-10); EOSINOPHILS % (AUTO) 0 % (0-10); HEMATOCRIT 36 % (35-52); HEMOGLOBIN 11.4 g/dL (11.5-16.0); LYMPHOCYTES # (AUTO) 1.1 10^3/uL (1.0-4.0); LYMPHOCYTES % (AUTO) 25 % (12-44); MEAN CORPUSCULAR HEMOGLOBIN 27 pg (25-34); MEAN CORPUSCULAR HGB CONC 32 g/dL (32-36); MEAN CORPUSCULAR VOLUME 85 fL (80-99); MEAN PLATELET VOLUME 11.3 fL (9.0-12.2); MONOCYTES # (AUTO) 0.3 10^3/uL (0.0-1.0); MONOCYTES % (AUTO) 6 % (0-12); NEUTROPHILS # (AUTO) 3.1 10^3/uL (1.8-7.8); NEUTROPHILS % (AUTO) 68 % (42-75); PLATELET COUNT 180 10^3/uL (130-400); WHITE BLOOD COUNT 4.6 10^3/uL (4.3-11.0)
[2020-12-16 13:45] LABS: SMEAR SCAN COMMENT YES
[2020-12-16 13:55] LABS: ALBUMIN 3.1 GM/DL (3.2-4.5)
[2020-12-16 13:56] LABS: CHLORIDE 110 MMOL/L (98-107); POTASSIUM 3.3 MMOL/L (3.6-5.0); SODIUM 137 MMOL/L (135-145)
[2020-12-16 13:57] LABS: CALCIUM 8.3 MG/DL (8.5-10.1)
[2020-12-16 13:58] LABS: GLUCOSE 70 MG/DL (70-105); TOTAL PROTEIN 6.4 GM/DL (6.4-8.2)
[2020-12-16 13:59] LABS: CARBON DIOXIDE 17 MMOL/L (21-32)
[2020-12-16 14:00] LABS: BILIRUBIN,TOTAL 0.3 MG/DL (0.1-1.0)
[2020-12-16 14:01] LABS: ALKALINE PHOSPHATASE 119 U/L (40-136)
[2020-12-16 14:02] LABS: CREATININE SERUM 0.53 MG/DL (0.60-1.30); GFR ESTIMATED > 60
[2020-12-16 14:03] LABS: BUN/CREATININE RATIO 9
[2020-12-16 14:05] LABS: ALANINE AMINOTRANSFERASE 20 U/L (0-55); URIC ACID 6.6 MG/DL (2.6-7.2)
[2020-12-16 14:25] LABS: BACTERIA,URINE MODERATE /HPF
[2020-12-16] MEDS ORDERED: DICYCLOMINE 10 MG (BENTYL) CAP PO NR (16:15)
[2020-12-16 16:25] VITALS: BP 115/64
[2020-12-16] MEDS ORDERED: DICY10CA12 PO (17:47)
[2020-12-16 17:53] VITALS: BP 113/69
--- NOTE | 2020-12-17 08:08 | Physician Query-Final Dx ---
Clinic Account Progress/Dx Physician Query: Please give diagnosis Please include # weeks gestation Date of Service Dec 16, 2020 at 12:18 SUSY CAMPO Dec 17, 2020 08:08
== END 2020-12-16 17:53 | disposition home or self-care (01) ==
LOC: WSo 12:18 → LDRP 12:18 → WSo 17:53
PROVIDERS: ATTEND Obstetrics & Gynecology
DX: O26.893 Other specified pregnancy related conditions, third trimester (principal); Z3A.39 39 weeks gestation of pregnancy
CPT/HCPCS: 36415; 80053; 81000; 82570; 83615; 84156; 84550; 85025; 87088; 99213

== ENCOUNTER 2020-12-18 06:32 | Inpatient (IN) | payer OTHER ==
[~2020-12-18] VITALS: Ht 162.6 cm; Wt 84.3 kg
[2020-12-18] VITALS (36 sets, daily range): BP systolic 85–167; BP diastolic 50–135
[~2020-12-18 06:32] MED LIST changes: +DICY10CA12 PO; +LORA10CA PO; +MONT10TA21 PO; +PANT40SU PO
[2020-12-18] MEDS ORDERED: D5 LR IV SOLUTION 1,000 ML IV SCH (06:45)
[2020-12-18 07:07] LABS: BASOPHILS % (AUTO) 0 % (0-10); EOSINOPHILS # (AUTO) 0.1 10^3/uL (0.0-0.3); EOSINOPHILS % (AUTO) 1 % (0-10); HEMATOCRIT 39 % (35-52); HEMOGLOBIN 12.5 g/dL (11.5-16.0); LYMPHOCYTES # (AUTO) 3.3 10^3/uL (1.0-4.0); LYMPHOCYTES % (AUTO) 44 % (12-44); MEAN CORPUSCULAR HEMOGLOBIN 27 pg (25-34); MEAN CORPUSCULAR HGB CONC 32 g/dL (32-36); MEAN CORPUSCULAR VOLUME 86 fL (80-99); MEAN PLATELET VOLUME 11.4 fL (9.0-12.2); MONOCYTES # (AUTO) 0.4 10^3/uL (0.0-1.0); MONOCYTES % (AUTO) 5 % (0-12); NEUTROPHILS # (AUTO) 3.7 10^3/uL (1.8-7.8); NEUTROPHILS % (AUTO) 49 % (42-75); PLATELET COUNT 219 10^3/uL (130-400); WHITE BLOOD COUNT 7.5 10^3/uL (4.3-11.0)
[2020-12-18] MEDS ORDERED: OXYTOCIN PRE-MIX DRIP 500 ML IV ONE (08:56)
[2020-12-18] MEDS ORDERED: OXYTOCIN PRE-MIX DRIP 500 ML IV SCH ×2 (09:00→16:00)
--- NOTE | 2020-12-18 09:04 | History & Physical-OB ---
OB - Chief Complaint & HPI Date/Time Date of Admission: Date of Admission: Dec 18, 2020 at 06:32 Date seen by a Provider: Dec 18, 2020 Time Seen by a Provider: 08:00 Chief Complaint/History OB-Reason for Admission/Chief: Induction of Labor Hx : 2 Hx Para: 1 Expected Date of Delivery: Dec 23, 2020 Gestational Age in Weeks: 39 Gestational Age in Days: 2 Indication for induction: other (39 weeks with abnormal quad screen) Admission Nurse Assessment Rev: Yes History of Labs A neg Antibody neg RI HIV NR GBS neg Allergies and Home Medications Allergies Coded Allergies: dicyclomine (Verified Allergy, Unknown, Rash, 12/18/20) peanut (Verified Allergy, Unknown, 04/02/19) Home Medications Loratadine 10 Mg Capsule, 10 MG PO DAILY, (Reported) Montelukast Sodium 10 Mg Tablet, 10 MG PO DAILY, (Reported) Pantoprazole Sodium 40 Mg Granpkt.dr, 40 MG PO DAILY, (Reported) Vit/Iron Fumarate/FA 1 Each Tablet, 1 EACH PO DAILY, (Reported) Patient Home Medication List Home Medication List Reviewed: Yes OB - History Hx of Present Care: Yes Ultrasounds: Normal mid trimester US Obstetrical Complications: Other (Abnormal quad screen requiring surveilence in 3rd trimester. Normal FFCDNA) Medical Complications: None Delivery History Adverse Rxn to Tranfusion: No Patient Past Medical History previously healthy Social History/Family History 2nd Hand Smoke Exposure: No Immunizations Hepatitis A: Yes Hepatitis B: Yes Date of Influenza Vaccine: Jun 24, 2020 OB - Admission Exam Physical Exam HEENT: NCAT Heart: Rhythm Normal Lungs: Clear Abdomen: Gravid Extremities: Normal Reflexes: Normal Cervical Dilatation: 4cm Effacement: 75% Station: -1 Membranes: Intact Heart Rate: 130's Accelerations: Accelerations Present Decelerations: No Decelerations Short Term Variability: Present Joss House Keeper Variability: Average (6-25) Contractions on Admission: >10 Minutes Apart Intensity: Mild Wright Scoring Tool (Modified) Dilation (cm): 3-4cm (2) Effacement (%): 51-79% (2) Descent/Station: -1,0 (2) Cervix Consistency: Soft (2) Cervix Position: Anterior (2) Add 1 point for: Each previous vaginal delivery (1) Wright Score: 11 Labs Laboratory Tests Test 12/18/20 06:50 Range/Units White Blood Count 7.5 4.3-11.0 10^3/uL Red Blood Count 4.57 3.80-5.11 10^6/uL Hemoglobin 12.5 11.5-16.0 g/dL Hematocrit 39 35-52 % Mean Corpuscular Volume 86 80-99 fL Mean Corpuscular Hemoglobin 27 25-34 pg Mean Corpuscular Hemoglobin Concent 32 32-36 g/dL Red Cell Distribution Width 14.9 H 10.0-14.5 % Platelet Count 219 130-400 10^3/uL Mean Platelet Volume 11.4 9.0-12.2 fL Immature Granulocyte % (Auto) 0 % Neutrophils (%) (Auto) 49 42-75 % Lymphocytes (%) (Auto) 44 12-44 % Monocytes (%) (Auto) 5 0-12 % Eosinophils (%) (Auto) 1 0-10 % Basophils (%) (Auto) 0 0-10 % Neutrophils # (Auto) 3.7 1.8-7.8 10^3/uL Lymphocytes # (Auto) 3.3 1.0-4.0 10^3/uL Monocytes # (Auto) 0.4 0.0-1.0 10^3/uL Eosinophils # (Auto) 0.1 0.0-0.3 10^3/uL Basophils # (Auto) 0.0 0.0-0.1 10^3/uL Immature Granulocyte # (Auto) 0.0 0.0-0.1 10^3/uL OB - Assessment/Plan/Diagnosis Assessment Assessment: induction of labor Admission Dx 35 yo @ 39.2 GBS neg Admission Status: Inpatient Order (span 2 midnights) Reason for Inpatient Admission: Induction of labor at 39 weeks Plan Plan: Induction Induction Method: CHELSI MCALLISTER DO Dec 18, 2020 09:04
[2020-12-18] MEDS ORDERED: fentaNYL INJ 100 MCG/2 ML AMP ONE (11:44)
[2020-12-18] MEDS ORDERED: BUPIVACAINE 0.25% 30 ML (SENSORCAINE) VIAL ONE (11:44)
[2020-12-18] MEDS ORDERED: LIDOCAINE PF 2% 5 ML (XYLOCAINE) VIAL ONE (11:44)
[2020-12-18] MEDS ORDERED: fentaNYL 2 mcg/ml BUPIVA 0.125 100 ML ONE (11:45)
[2020-12-18] MEDS ORDERED: LACTATED RINGERS 1,000 ML IV SCH (12:15)
[2020-12-18] MEDS ORDERED: ONDANSETRON 4 MG/2 ML (SDV) Z0FRAN IV PRN (12:15)
[2020-12-18] MEDS ORDERED: EPIDURAL (fentaNYL 2 MCG/ML BUPIVA 0.125%)100 ML BAG EPI PRN (12:15)
[2020-12-18] MEDS ORDERED: NALOXONE 0.4 MG/ML 1 ML (NARCAN) VIAL IV PRN (12:15)
[2020-12-18] MEDS ORDERED: diphenhydrAMINE 50 MG/ML INJ (BENADRYL) IV PRN (12:15)
[2020-12-18] MEDS ORDERED: CATHETER FLUSH 10 ML SYR IV SCH ×2 (14:00→22:00)
[2020-12-18] MEDS ORDERED: MEASLES,MUMPS,RUBELLA 1 EA INJ SQ ONE (16:00)
[2020-12-18] MEDS ORDERED: DIBUCAINE (NUPERCAINAL) 1% OINT 30 GM TOP PRN (16:00)
[2020-12-18] MEDS ORDERED: HYDROcodone/APAP 5 MG/325 MG (LORTAB) TAB PO PRN (16:00)
[2020-12-18] MEDS ORDERED: TETANUS,DIPTH,PERTUSS P/F (BOOSTRIX) 0.5 ML VIAL IM ONE (16:00)
[2020-12-18] MEDS ORDERED: WITCH HAZEL(TUCKS) 40 EA JAR TOP PRN (16:00)
--- NOTE | 2020-12-18 16:19 | OB Labor & Delivery Record ---
L&D History Date of Service Date of Service: Dec 18, 2020 History Expected Date of Delivery: Dec 23, 2020 Gestational Age in Weeks: 39 Hx : 2 Hx Para: 1 Complications Events: Routine care Operative Indications (Cesarea: N/A-Vaginal Delivery Intrapartal Events: None L&D Stage1 Stage One Onset of Labor - Date: Dec 18, 2020 Monitors and Tracing Monitor Mode: External Heart Rate: 140 Monitor Accelerations: Uniform Monitor Decelerations: None Station Mechanic Helper Variability: Average (6-10) Short Term Variability: Present Presentation: Vertex Vital Signs VS - Last 72 Hours, by Label 12/18/20 12/18/20 12/18/20 12/18/20 07:30 07:30 08:00 08:30 Temp 37.5 37.5 Pulse 90 90 89 88 Resp 18 18 18 18 B/P (MAP) 121/75 (90) 119/74 (89) 115/68 (84) Pulse Ox 98 O2 Delivery Room Air Room Air Room Air Room Air 12/18/20 12/18/20 12/18/20 12/18/20 09:00 09:15 09:30 09:45 Pulse 95 88 86 88 Resp 18 18 18 18 B/P (MAP) 114/65 (81) 105/61 (76) 113/65 (81) 122/60 (80) O2 Delivery Room Air Room Air Room Air Room Air 12/18/20 12/18/20 12/18/20 12/18/20 10:00 10:30 10:45 11:00 Pulse 86 94 96 Resp 18 18 18 18 B/P (MAP) 129/59 (82) 127/73 (91) 118/86 (97) O2 Delivery Room Air Room Air Room Air Room Air 12/18/20 12/18/20 12/18/20 12/18/20 11:15 11:30 11:45 12:00 Temp 36.6 Pulse 86 86 87 97 Resp 18 18 18 18 B/P (MAP) 120/65 (83) 109/57 (74) 123/69 (87) 136/74 (94) Pulse Ox 100 O2 Delivery Room Air Room Air Room Air Room Air 12/18/20 12/18/20 12/18/20 12/18/20 12:05 12:10 12:15 12:20 Pulse 90 107 106 117 Resp 18 18 18 18 B/P (MAP) 125/69 (87) 121/71 (88) 113/61 (78) 113/61 (78) Pulse Ox 100 100 100 100 O2 Delivery Room Air Room Air Room Air Room Air 12/18/20 12/18/20 12/18/20 12/18/20 12:25 12:30 12:35 12:40 Pulse 109 100 83 86 Resp 18 18 18 18 B/P (MAP) 102/56 (71) 108/58 (75) 105/55 (72) 85/50 (62) Pulse Ox 96 97 96 95 O2 Delivery Room Air Room Air Room Air Room Air 12/18/20 12:45 Pulse 80 Resp 18 B/P (MAP) 109/55 (73) Pulse Ox 98 O2 Delivery Room Air Rupture of Membranes Spontaneous Ruture of Membrane: No Amniotic Membrane Rupture Time: 0810 Amniotic Membrane Fluid Desc.: Clear Vaginal Bleeding Description: Normal Show Induction/Anesthesia Epidural Cath Placement - Time: 1210 Progress/Notes Patient labor augmented with Pitocin to max dose of 8 mu/ she received an epidural and progressed to compete and + 2 station L&D Stage2 Stage Two Stage II Date: Dec 18, 2020 Monitors and Tracing Monitor Mode: External Heart Rate: 140 Monitor Accelerations: Uniform Monitor Decelerations: Variable Station Mechanic Helper Variability: Average (6-10) Short Term Variability: Present Position: Right Occiput Anterior Presentation: Vertex Cord Descript/Complications Cord Vessel Description: 3 Vessels Delivery Type Infant Delivery Method: Spontaneous Vaginal Anterior Shoulder: Right Episiotomy/Perineal Laceration Laceraction(s)/Extensions: Yes Episiotomy Description: Perineal Extension/lac, 1st degree Degree (describe repair) 1st degree perineal and right labial laceration repaired using 3-0 rapide in usual fashion. Condition of Delivery 1 minute Comment: 8 5 minute Comment: 8 Notes Live male weight 7lbs 10 oz Condition of Infant Condition of Infant: Living Exam: No Observed Abnormalities Resuscitation Resuscitation: N/A - Spontaneous Resp L&D Stage3 Stage Three Stage III Date: Dec 18, 2020 Pictocin Pitocin Administration mu/min: 8 Pitocin ml/hr: 8 Pitocin Administration Comment: 30 mu wide open at delivery of placenta Placenta Delivery Placenta Delivery: Spontaneous Delivery Summary Summary Estimated blood loss (mL): 250 Attending at delivery: Chelsi Amaya DO Condition of Delivery Examined: Cervix Examined, Uterus Explored Post Hemorrhage: No Condition of Mother stable Condition of Infant (s) stable CHELSI AMAYA DO Dec 18, 2020 4:19 pm
[2020-12-18] MEDS: IBUPROFEN 600 MG (MOTRIN) TAB PO SCH (18:00)
[2020-12-18] MEDS: BENZOCAINE/MENTHOL (DERMOPLAST) 56 ML CAN TP PRN (18:01)
[2020-12-18] MEDS: DOCUSATE SODIUM 100 MG (COLACE) CAP PO SCH (19:23)
[2020-12-19 01:04] VITALS: BP 93/54
[2020-12-19] MEDS: IBUPROFEN 600 MG (MOTRIN) TAB PO SCH ×4 (01:04→18:06)
[2020-12-19 05:22] VITALS: BP 118/74
[2020-12-19 05:50] LABS: BASOPHILS % (AUTO) 0 % (0-10); EOSINOPHILS # (AUTO) 0.1 10^3/uL (0.0-0.3); EOSINOPHILS % (AUTO) 1 % (0-10); HEMATOCRIT 34 % (35-52); HEMOGLOBIN 10.5 g/dL (11.5-16.0); LYMPHOCYTES # (AUTO) 4.2 10^3/uL (1.0-4.0); LYMPHOCYTES % (AUTO) 39 % (12-44); MEAN CORPUSCULAR HEMOGLOBIN 27 pg (25-34); MEAN CORPUSCULAR HGB CONC 31 g/dL (32-36); MEAN CORPUSCULAR VOLUME 87 fL (80-99); MEAN PLATELET VOLUME 11.3 fL (9.0-12.2); MONOCYTES # (AUTO) 0.4 10^3/uL (0.0-1.0); MONOCYTES % (AUTO) 4 % (0-12); NEUTROPHILS % (AUTO) 56 % (42-75); PLATELET COUNT 183 10^3/uL (130-400); WHITE BLOOD COUNT 10.7 10^3/uL (4.3-11.0)
[2020-12-19] MEDS ORDERED: PRENATAL VITAMIN 1 EA TAB PO SCH (07:00)
--- NOTE | 2020-12-19 08:14 | Discharge Inst-Women's Service ---
Discharge Inst-Women's Serv Depart Medication/Instructions New, Converted or Re-Newed RX: RX on Chart Final Diagnosis PPD 1 NVD Problems Reviewed?: Yes Consults/Follow Up Additional Follow Up: Yes Orders/Referrals Dr. Amaya or John in 6 weeks Activity Activity: Activity as Tolerated Driving Instructions: No Driving for 1 Week NO SMOKING: NO SMOKING Nothing Inside Vagina: No Douching, No [place], No Tampons Diet Discharge Diet: No Restrictions Symptoms to Report to : Bleeding Excessive, Pain Increased, Fever Over 101 Degrees F, Vaginal Bleeding Increase, Questions/Concerns For Any Problems or Questions: Contact Your Physician CHELSI AMAYA DO Dec 19, 2020 08:14
[2020-12-19] MEDS ORDERED: DIBU30OI TOP (08:15)
[2020-12-19] MEDS ORDERED: ACHD5005 PO (08:15)
[2020-12-19] MEDS ORDERED: BENZ78AE5 TP (08:15)
[2020-12-19] MEDS ORDERED: IBUP-844 PO (08:15)
[2020-12-19] MEDS ORDERED: DCS100C PO (08:15)
--- NOTE | 2020-12-19 08:29 | Anesthesia-Regional Post-Op ---
Regional Patient Condition Mental Status: Alert, Oriented x3 Circulation: Same as Pre-Op Headache: Absent Sensation: Full Recovery Motor Block: Absent Post Op Complications Complications None Follow Up Care/Instructions Patient Instructions None needed. Anesthesia/Patient Condition Patient is doing well, no complaints, stable vital signs, no apparent adverse anesthesia problems. No complications reported per nursing. ROBERT RASCON CRNA Dec 19, 2020 08:29
[2020-12-19 08:45] VITALS: BP 126/74
[2020-12-19] MEDS: DOCUSATE SODIUM 100 MG (COLACE) CAP PO SCH (08:48)
[2020-12-19] MEDS: BENZOCAINE/MENTHOL (DERMOPLAST) 56 ML CAN TP PRN (08:53)
[2020-12-19 14:15] VITALS: BP 112/55
[2020-12-19 19:00] VITALS: BP 112/55
== END 2020-12-19 19:00 | disposition home or self-care (01) | DRG 807 ==
LOC: LDRP 06:32
PROVIDERS: ADMIT Obstetrics & Gynecology; ATTEND Obstetrics & Gynecology
PROC: 10E0XZZ Delivery of Products of Conception, External Approach (ICD-10-PCS; principal; 2020-12-18)
PROC: 0HQ9XZZ Repair Perineum Skin, External Approach (ICD-10-PCS; 2020-12-18)
PROC: 10907ZC Drainage of Amniotic Fluid, Therapeutic from Products of Conception, Via Natural or Artificial Opening (ICD-10-PCS; 2020-12-18)
DX: O70.0 First degree perineal laceration during delivery (principal); Z37.0 Single live birth; Z3A.39 39 weeks gestation of pregnancy; Z88.8 Allergy status to other drugs, medicaments and biological substances; Z91.010 Allergy to peanuts
CPT/HCPCS: 36415; 83033; 85025; 86850; 86900; 86901

== ENCOUNTER 2021-01-30 05:40 | Outpatient (CLI) | payer OTHER ==
[~2021-01-30] VITALS: Ht 162.6 cm; Wt 70.4 kg
[~2021-01-30 05:40] MED LIST changes: +ACHD5005 PO; +BENZ78AE5 TP; +DCS100C PO; +DIBU30OI TOP
[2021-01-30] MEDS ORDERED: FLUO20CA46 PO (13:07)
[2021-01-30] MEDS ORDERED: BIRTH CONTROL PILLS (13:07)
[2021-02-05] MEDS ORDERED: ACHD5005 PO (10:01)
== END 2021-01-30 13:34 | disposition home or self-care (01) ==
LOC: PREOP 05:40
PROVIDERS: ATTEND Surgery
DX: Z01.818 Encounter for other preprocedural examination (principal)

== ENCOUNTER 2021-02-05 07:25 | Day surgery (SDC) | payer OTHER ==
[2021-02-05] VITALS (10 sets, daily range): BP systolic 96–121; BP diastolic 52–79
[~2021-02-05] VITALS: Ht 162 cm; Wt 70.4 kg
[~2021-02-05 07:25] MED LIST changes: +BIRTH CONTROL PILLS; +FLUO20CA46 PO
[2021-02-05] MEDS: LACTATED RINGERS 1,000 ML IV PRN ×2 (07:57→11:01)
[2021-02-05] MEDS ORDERED: ceFAZolin 2 GM IV Premixed 50 ML IV ONE (08:00)
[2021-02-05] MEDS ORDERED: LIDOCAINE/EPI 1%-1:100,000 (XYLOCAINE) 20ML ONE (08:09)
--- NOTE | 2021-02-05 08:16 | Progress Note-Pre Operative ---
Pre-Operative Progress Note H&P Reviewed The H&P was reviewed, patient examined and no changes noted. Time Seen by Provider: 08:11 Date H&P Reviewed: February 05, 2021 Time H&P Reviewed: 08:12 Pre-Operative Diagnosis: Cholelithiasis/cholecystitis, Umb hernia REFUGIO BRIAN DO February 05, 2021 08:16
[2021-02-05] MEDS ORDERED: fentaNYL INJ 100 MCG/2 ML AMP ONE (08:49)
[2021-02-05] MEDS ORDERED: MIDAZOLAM 2 MG/2 ML (VERSED) VIAL ONE (08:49)
[2021-02-05] MEDS ORDERED: ONDANSETRON 4 MG/2 ML (SDV) Z0FRAN IVP PRN ×2 (09:15→10:30)
[2021-02-05] MEDS ORDERED: HYDROmorphone 2 MG/ML VIAL (DILAUDID) IV ONE ×2 (09:15→10:30)
[2021-02-05] MEDS ORDERED: ONDANSETRON 4 MG/2 ML (SDV) Z0FRAN ONE (09:33)
[2021-02-05] MEDS ORDERED: LIDOCAINE PF 2% 5 ML (XYLOCAINE) VIAL ONE (09:33)
[2021-02-05] MEDS ORDERED: NEOSTIGMINE 3 MG/3 ML VIAL ONE (09:33)
[2021-02-05] MEDS ORDERED: ROCURONIUM 10 MG/ML 5 ML SYRINGE IV ONE (09:33)
[2021-02-05] MEDS ORDERED: SEVOFLURANE (ULTANE) 15 ML INHAL SOLN ONE ×2 (09:33→10:10)
[2021-02-05] MEDS ORDERED: proPOfol 200 MG/20 ML (DIPRIVAN) VIAL IV ONE (09:33)
[2021-02-05] MEDS ORDERED: HYDROmorphone 2 MG/ML VIAL (DILAUDID) ONE (09:34)
[2021-02-05] MEDS ORDERED: GLYCOPYRROLATE 0.2 MG/ML (ROBINUL) 2 ML VIAL ONE (09:34)
--- NOTE | 2021-02-05 10:00 | Progress Note-Post Operative ---
Post-Operative Progess Note Surgeon (s)/Mobile Equipment Mechanic (s) Surgeon REFUGIO BRIAN DO Mobile Equipment Mechanic: [place] Pre-Operative Diagnosis Cholelithiasis/cholecystitis, Umb hernia Post-Operative Diagnosis same, incarcerated umb hernia Procedure & Operative Findings Date of Procedure 02/05/21 Procedure Performed/Findings PROCEDURE: 1. Laparoscopic cholecystectomy with intraoperative cholangiogram. 2. Open umbilical hernia repair COMPLICATIONS: None. PROCEDURE: The patient was taken to the operating suite and was prepped and draped in sterile fashion. A surgical pause was performed. Just inferior to the umbilicus, a 12 mm incision was made. Dissection was taken down to the fascia, which was then scored and grasped with a Mimi and the abdomen was then entered. A 0 Vicryl suture was placed in a [id number]-[id number] fashion and a Saravia trocar was placed and secured. Pneumoperitoneum was achieved. A 5mm trochar place in the subxyphoid and 2 in the right upper quadrant. The gallbladder was then grasped and elevated. The cystic duct, and cystic artery were then dissected out. Clip was placed on the distal portion of the cystic duct which was then partially transected. An arrow catheter was inserted into the duct. The cholangiogram was then performed. No filing defects and contrast made its way into the duodenum. Catheter removed. Clips were placed on proximal portion of the cystic duct and then the duct was then transected. Clips were placed along the proximal and distal portion of the cystic artery which was then transected. Hook cautery was used to dissect the gallbladder from the gallbladder fossa achieving hemostasis. The gallbladder was placed in an Endobag and removed through the 12 mm trocar site. The abdomen was then reinspected. Copious amounts of irrigation were used to irrigate the abdomen and there were no signs of active bleeding. Hemostasis had been achieved. At this point then elected to fix the umbilical hernia. Got around the umbilical stalk bluntly with a hemostat and then took this off the fascia with bovie cautery. Removed hernia sac and hernia contents. Then closed the fascial defect with 2 figure of eight 0 Vicryl sutures. The umbilical stalk was then tacked down to the fascia with 0 Vicryl. The abdomen was then desufflated, the trocars were removed. The abdomen was then washed and dried. The skin was then closed using 4-0 Monocryl in a subcuticular fashion. The abdomen was washed and dried and Skin Affix was place over incisions. Patient tolerated the procedure well without any complications and was taken to the recovery room in stable condition. Dr Tran assisted on this case helping to make incisions, close incisions, identify anatomy and hold anatomy out of the way. Anesthesia Type GET Estimated Blood Loss Estimated blood loss (mL): scant Specimens/Packing Specimens Removed GB and contents hernia contents REFUGIO BRIAN DO February 05, 2021 10:00
[2021-02-05] MEDS ORDERED: ACHD5005 PO (10:01)
--- NOTE | 2021-02-05 10:02 | Discharge Inst-Surgical ---
Discharge Inst-Surgical Depart Medication/Instructions New, Converted or Re-Newed RX: RX Given to Pt/Family Patient Instructions Follow up Appt: Make appointment for 1 week. [phone] Instructions: No lifting greater than 20 pounds. No strenuous activity. May shower in 24 hours, no tub bath or soaking. Use incentive spirometer at home as directed. No Smoking Skin/Wound Care: May remove bandages in am. You need to leave the Dermabond on incision it will fall off on it's own. Symptoms to Report: Appetite Changes, Extremity Discoloration, Numbness/Tingling, Swelling Increased, Bleeding Excessive, Eyesight Changes, Pain Increased, Urine Color Change, Constipation(Persistent), Fever over 101 degree F, Pain/Pressure in chest, Urinating Difficulty, Cough Up/Vomit Blood, Heart Beat Irreg/Pounding, Pain/Pressure in jaw, Cramps in feet or legs, Lightheadedness, Pain/Pressure in shoulder, Diarrhea(Persistent), Memory Changes Suddenly, Questions/Concerns, Weight gain consecutive days, Dizziness/Fainting, Nausea/Vomiting, Shortness of Breath, Weight gain over 2 pounds If questions or concerns contact your physician Or seek help at emergency department. Activity Activity as Tolerated: Yes Activity Instructions: Avoid Stress to Incision Driving Instructions: No Driving/Refer to Diet Discharge Diet: Avoid Fatty Foods, Low Fat/Low Cholesterol Diet After 24 Hours: Clear Liquid if Nauseous If Any Problems/Questions/Issu: Contact Your Physician, Go to Emergency Room Skin/Wound Care Infection Signs and Symptoms: Increased Redness, Foul Odor of Wound, Increased Drainage, Skin Itchy or Has a Rash, Increased Swelling, Temperature Above 101 F Wound Care Comment: heating pad to shoulder or neck tonight for pain Bathing Instructions: Shower Stitches/[place]/Dermabond Dis: Dermabond Ice Pack: Ice On and Off Site REFUGIO BRIAN DO February 05, 2021 10:02
--- NOTE | 2021-02-05 10:15 | Diagnostic Imaging Report ---
INDICATION: Fluoroscopy for intraoperative cholangiogram. Fluoroscopy was provided in the OR during intraoperative venogram. 10 seconds of fluoroscopic time was utilized. 56 images were obtained. Contrast is seen being injected via the cystic duct remnant. Intrahepatic and hepatic bile ducts are opacified. No filling defects are seen. Contrast flows into the duodenum. IMPRESSION: Fluoroscopy during intraoperative cholangio-gram. Dictated by: Dictated on workstation # [id number]
[2021-02-05] MEDS ORDERED: morphine INJ 10 MG/ML 1ML (SYR OR VIAL) IVP ONE (10:30)
--- NOTE | 2021-02-05 11:05 | Anesthesia-General Post-Op ---
General Patient Condition Mental Status/LOC: Same as Preop Cardiovascular: Satisfactory Nausea/Vomiting: Absent Respiratory: Satisfactory Pain: Controlled Complications: Absent Post Op Complications Complications None Follow Up Care/Instructions Patient Instructions None needed. Anesthesia/Patient Condition Patient Condition Patient is doing well, no complaints, stable vital signs, no apparent adverse anesthesia problems. YASMIN LUU DO February 05, 2021 11:05
[2021-02-05] MEDS ORDERED: HYDROcodone/APAP 5 MG/325 MG (LORTAB) TAB ONE (11:11)
[2021-02-05] MEDS ORDERED: HYDROcodone/APAP 5 MG/325 MG (LORTAB) TAB PO ONE (11:15)
== END 2021-02-05 12:05 ==
LOC: SDC 07:25
PROVIDERS: ATTEND Surgery
DX: K80.10 Calculus of gallbladder with chronic cholecystitis without obstruction (principal); K42.0 Umbilical hernia with obstruction, without gangrene; K21.9 Gastro-esophageal reflux disease without esophagitis; F41.1 Generalized anxiety disorder; Z79.899 Other long term (current) drug therapy
CPT/HCPCS: 76000; 84703; 87081; 94664

== ENCOUNTER → 2021-08-25 | Outpatient (CLI) | payer OTHER ==
[~2021-08-25] MED LIST changes: -DCS100C PO; +DOCU-239 PO; -FLUO20CA46 PO; +FLUO20CA48 PO
== END ==
LOC: LAB FS 13:51
PROVIDERS: ATTEND Family Medicine
DX: Z01.419 Encounter for gynecological examination (general) (routine) without abnormal findings (principal)
CPT/HCPCS: 87210

== ENCOUNTER → 2021-11-14 | Outpatient (CLI) | payer OTHER ==
--- NOTE | 2021-11-14 16:23 | Diagnostic Imaging Report ---
INDICATION: Chest pain. COMPARISON: 08/20/2020. EXAMINATION: Chest, PA and lateral views. FINDINGS: The lungs are well-aerated and clear. No hyperaeration. Heart is not enlarged. No pulmonary edema. No pneumothorax or pleural effusion. No bony abnormalities. IMPRESSION: Normal PA and lateral chest. Dictated by: Dictated on workstation # [id number]
== END ==
LOC: RAD FS 15:26
PROVIDERS: ATTEND Family Medicine
DX: R07.9 Chest pain, unspecified (principal)
CPT/HCPCS: 71046

== ENCOUNTER → 2022-03-05 | Outpatient (CLI) | payer OTHER ==
--- NOTE | 2022-03-05 13:52 | Diagnostic Imaging Report ---
Indication: Left knee pain. Time of Exam: 1:03 PM Three views of the left knee were obtained. Alignment is normal. Joint spaces are well-maintained. The articular surfaces are smooth. No fracture, dislocation or effusion is identified. IMPRESSION: No acute bony abnormality is detected. Dictated by: Dictated on workstation # [id number]
== END ==
LOC: RAD FS 12:46
PROVIDERS: ATTEND Family Medicine
DX: M25.562 Pain in left knee (principal); M25.561 Pain in right knee
CPT/HCPCS: 73562